=== PATIENT | male | born 1990 | race Caucasian/White ===

== ENCOUNTER 2018-03-05 01:52 | Emergency (ER) | payer OTHER ==
[2018-03-05] MEDS ORDERED: NS 1,000 ML IV ONE ×2 (02:07→03:47)
[2018-03-05] MEDS ORDERED: fentaNYL 100 MCG/2 ML INJ IVP ONE ×2 (02:07→04:36)
[2018-03-05] MEDS ORDERED: ONDANSETRON 4 MG/2 ML VIAL IVP ONE (02:07)
--- NOTE | 2018-03-05 02:26 | EDPHY ---
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 Patient states that he was feeling well so he drank 2 nights ago. Yesterday morning about 11 o'clock it began having upper abdominal pain similar to his prior pancreatitis flare. He has had some nausea vomiting. No blood or coffee-grounds in his vomit. No dark tarry stools or blood. Pain is primarily in his epigastrium, about an 8/ 10. He has not been able to keep anything down. No fevers or chills. No lower abdominal pain. No urinary urgency or frequency. ROS: 10 point Review of Systems is negative except as noted in the HPI. PMH: Pancreatitis Social History: No smoking, occasional alcohol, occasional marijuana Family History: non-contributory Physical Exam: Gen: Awake, Alert, No Distress HEENT: Nose: no rhinorrhea Eyes: PERRLA, EOMI Mouth: Moist mucosa Neck: Supple, no JVD Chest: nontender, lungs clear to auscultation Heart: S1, S2 normal, no murmur Abd: Soft, moderate epigastric tenderness, no right upper quadrant tenderness, no lower abdominal tenderness, no guarding Back: no CVA tenderness, no midline tenderness Ext: no edema, non-tender Skin: no rash Neuro: CN II-XII intact, Sensation grossly intact, Strength 5/5 in bilateral upper and lower extremities - Personal History Current Tetanus Diphtheria and Acellular Pertussis (TDAP): Yes - Medical/Surgical History Hx Asthma: No Hx Chronic Respiratory Disease: No Hx Diabetes: No Hx Cardiac Disease: No Hx Renal Disease: No Hx Cirrhosis: No Hx Alcoholism: No Hx HIV/AIDS: No Hx Splenectomy or Spleen Trauma: No Other PMH: pancreatitis - Social History Smoking Status: Never smoked Constitutional: Initial Vital Signs Temperature (C) 36.7 C 03/05/18 01:54 Heart Rate 73 03/05/18 01:54 Respiratory Rate 18 03/05/18 01:54 Blood Pressure 123/89 H 03/05/18 01:54 O2 Sat (%) 98 03/05/18 01:54 O2 Delivery Mode Room Air O2 (L/minute) 2 Allergies/Adverse Reactions: bismuth subsalicylate [From Pepto-Bismol] Allergy (Verified 03/05/18 01:58) Medical Decision Making ED Course/Re-evaluation: Patient's lipase is normal. He has some epigastric tenderness but otherwise a benign abdomen. Symptoms likely more consistent with alcoholic gastritis. Will order IV Pepcid here. Patient is feeling improved. Repeat examination is improved. Will discharge with instructions to abstain from alcohol, follow up with primary care. - Data Points Laboratory Results: Laboratory Results 03/05/18 02:05 03/05/18 02:05 03/05/18 03/05/18 02:05 02:05 WBC 10.59 10^3/uL H 10^3/uL (3.80-9.50) RBC 4.57 10^6/uL 10^6/uL (4.40-6.38) Hgb 15.1 g/dL g/dL (13.7-17.5) Hct 43.3 % % (40.0-51.0) MCV 94.7 fL fL (81.5-99.8) MCH 33.0 pg pg (27.9-34.1) MCHC 34.9 g/dL g/dL (32.4-36.7) RDW 13.0 % % (11.5-15.2) Plt Count 262 10^3/uL 10^3/uL (150-400) MPV 10.4 fL fL (8.7-11.7) Neut % (Auto) 69.1 % % (39.3-74.2) Lymph % (Auto) 24.0 % % (15.0-45.0) [place] % (Auto) 5.7 % % (4.5-13.0) Eos % (Auto) 0.7 % % (0.6-7.6) Baso % (Auto) 0.2 % L % (0.3-1.7) Nucleat RBC Rel Count 0.0 % % (0.0-0.2) Absolute Neuts (auto) 7.33 10^3/uL H 10^3/uL (1.70-6.50) Absolute Lymphs (auto) 2.54 10^3/uL 10^3/uL (1.00-3.00) Absolute Monos (auto) 0.60 10^3/uL 10^3/uL (0.30-0.80) Absolute Eos (auto) 0.07 10^3/uL 10^3/uL (0.03-0.40) Absolute Basos (auto) 0.02 10^3/uL 10^3/uL (0.02-0.10) Absolute Nucleated RBC 0.00 10^3/uL 10^3/uL (0-0.01) Immature Gran % 0.3 % % (0.0-1.1) Immature Gran # 0.03 10^3/uL 10^3/uL (0.00-0.10) Sodium 143 mEq/L mEq/L (135-145) Potassium 4.5 mEq/L mEq/L (3.3-5.0) Chloride 105 mEq/L mEq/L (97-110) Carbon Dioxide 20 mEq/l L mEq/l (22-31) Anion Gap 18 mEq/L H mEq/L (8-16) BUN 16 mg/dL mg/dL (7-23) Creatinine 0.7 mg/dL mg/dL (0.7-1.3) Estimated GFR > 60 Glucose 159 mg/dL H mg/dL (70-100) Calcium 10.5 mg/dL H mg/dL (8.5-10.4) Total Bilirubin 1.1 mg/dL mg/dL (0.1-1.4) AST 30 IU/L IU/L (17-59) ALT 24 IU/L IU/L (21-72) Alkaline Phosphatase 122 IU/L IU/L (38-126) Total Protein 7.8 g/dL g/dL (6.3-8.2) Albumin 4.8 g/dL g/dL (3.5-5.0) Lipase 230 IU/L IU/L (23-300) Medications Given: Discontinued Medications Fentanyl (Sublimaze) 50 mcg IVP EDNOW ONE Stop: 03/05/18 02:08 Last Admin: 03/05/18 02:11 Dose: 50 mcg Sodium Chloride (Ns) 1,000 mls @ 0 mls/hr IV ONCE ONE PRN Reason: Wide Open Stop: 03/05/18 02:08 Last Admin: 03/05/18 02:13 Dose: 1,000 mls Ondansetron HCl (Zofran) 4 mg IVP EDNOW ONE Stop: 03/05/18 02:08 Last Admin: 03/05/18 02:11 Dose: 4 mg Departure - Departure Disposition: Home, Routine, Self-Care Clinical Impression: Gastritis Condition: Good Instructions: Gastritis (ED) Additional Instructions: Please avoid drinking alcohol. You may take Pepcid [id number] as needed for abdominal pain. Follow up with primary care physician in 3-4 days if you are not feeling better. Referrals: Rodney Dillon DO [Doctor of Osteopathy] - As per Instructions
[2018-03-05 02:28] LABS: PLATELET COUNT 262 10^3/uL (150-400)
[2018-03-05] MEDS ORDERED: FAMOTIDINE 20 MG/2 ML SDV IVP ONE (03:05)
[2018-03-05] MEDS ORDERED: PROMETHAZINE HCL 25 MG/ML INJ IVP ONE (03:40)
[2018-03-05] MEDS ORDERED: PROMETHAZINE HCL 25 MG/ML INJ ONE (03:40)
[2018-03-05] MEDS ORDERED: LIDOCAINE 2% VISCOUS 15 ML UDCUP PO ONE (04:09)
[2018-03-05] MEDS ORDERED: MAG HYDROX/AL HYDROX/SIMETH 30 ML UDCUP PO ONE (04:09)
[2018-03-05] MEDS ORDERED: KETOROLAC 30 MG/1 ML SDV IVP ONE (04:38)
[2018-03-05] MEDS ORDERED: ONDANSETRON 4MG PREPACK#2 BTL TAKEHOME ONE (05:02)
[2018-03-05 05:15] VITALS: BP 139/90
== END 2018-03-05 05:14 | disposition home or self-care (01) ==
DX: K29.70 Gastritis, unspecified, without bleeding (principal); E86.9 Volume depletion, unspecified
CPT/HCPCS: 96374; J1885; J2405; J2550; J3010